=== PATIENT | female | born 1935 ===

== ENCOUNTER 2024-11-03 10:15 | Inpatient (IN) | payer OTHER ==
[~2024-11-03] VITALS: Ht 30.5 cm; Wt 50.8 kg
[~2024-11-03 10:15] MED LIST: PROTONIX20 MG; SYNTHROID75 MCG
[2024-11-03] MEDS ORDERED: PEPCID20 MG PO (11:15)
[2024-11-08] MEDS ORDERED: FUROsemide 20 MG/2 ML VIAL IV SCH (14:30)
[2024-11-08 16:00] VITALS: BP 140/76; O2SAT 100
[2024-11-08] MEDS ORDERED: FAMOtidine 20 MG TABLET PO SCH (21:00)
[2024-11-09 01:14] VITALS: BP 117/58; O2SAT 100
[2024-11-09] MEDS ORDERED: LEVOTHYROXINE SODIUM 75 MCG TABLET PO SCH (06:00)
[2024-11-09 08:00] VITALS: BP 118/59; O2SAT 100
[2024-11-09] MEDS ORDERED: RAZADYNE PO SCH (09:00)
[2024-11-09] MEDS ORDERED: POLYETHYLENE GLYCOL 3350 238 GM POWDER PO NR (14:00)
[2024-11-09 16:54] VITALS: BP 140/62; O2SAT 100
[2024-11-09] MEDS ORDERED: BISACODYL 5 MG TABLET.EC PO SCH (21:00)
[2024-11-10 02:41] VITALS: BP 140/63; O2SAT 100
[2024-11-10] MEDS ORDERED: MINERAL OIL 133 ML ENEMA RECTAL SCH (05:00)
[2024-11-10 08:00] VITALS: BP 144/65; O2SAT 98
[2024-11-10] MEDS ORDERED: BUPIVACAINE HCL/Mpf 0.5% 10ML VIAL ONE (11:01)
[2024-11-10] MEDS ORDERED: LIDOCAINE HCL 1%/EPINEPHRINE 20ML VIAL IJ ONE (11:01)
[2024-11-10] MEDS ORDERED: METRONIDAZOLE/SODIUM CHLORIDE 500 MG/100 ML PIGGYBACK IV ONE (11:02)
[2024-11-10] MEDS ORDERED: CEFTRIAXONE SODIUM 2,000 MG VIAL ONE (11:22)
[2024-11-10 11:29] LABS: HEMATOCRIT 40.3 % (36.0-45.00); HEMOGLOBIN 13.5 g/dL (12.0-15.00); MEAN CELL VOLUME 77.2 fL (80.00-100.00); MEAN CORPUSCULAR HEMOGLOBIN 25.8 pg (27.00-32.0); MEAN CORPUSCULAR HGB CONC 33.4 g/dl (32.0-36.0); PLATELET COUNT 372 K/uL (150-450); RED BLOOD COUNT 5.22 M/uL (4.00-6.00); RED CELL DISTRIBUTION WIDTH 19.8 % (11.5-14.5)
[2024-11-10 13:07] LABS: INR 1.13; PARTIAL THROMBOPLASTIN TIME 27.9 SECONDS (22.0-34.0); PROTHROMBIN TIME 12.2 SECONDS (9.0-11.5)
[2024-11-10] MEDS ORDERED: OxyCODONE HCL 5 MG TABLET (ROXICODONE) PO PRN (14:30)
[2024-11-10] MEDS ORDERED: MORPHINE SULFATE 4 MG/ML CARTRIDGE IV PRN (14:30)
[2024-11-10] MEDS ORDERED: ONDANSETRON HCL 2 MG/ML VIAL IV PRN (14:30)
[2024-11-10] MEDS ORDERED: RINGERS SOLUTION,LACTATED 1,000 ML IV SCH (14:30)
[2024-11-10] MEDS ORDERED: MORPHINE SULFATE 4 MG/ML VIAL IV ONE ×2 (14:35→16:05)
[2024-11-10 15:28] LABS: HEMATOCRIT 36.5 % (36.0-45.00); MEAN CELL VOLUME 78.7 fL (80.00-100.00); MEAN CORPUSCULAR HEMOGLOBIN 25.8 pg (27.00-32.0); MEAN CORPUSCULAR HGB CONC 32.8 g/dl (32.0-36.0); PLATELET COUNT 327 K/uL (150-450); RED BLOOD COUNT 4.64 M/uL (4.00-6.00); RED CELL DISTRIBUTION WIDTH 19.6 % (11.5-14.5)
[2024-11-10] MEDS ORDERED: METOCLOPRAMIDE HCL 5 MG/ML VIAL ONE (16:22)
[2024-11-10 16:30] VITALS: BP 114/64; O2SAT 95
[2024-11-10] MEDS ORDERED: GABAPENTIN 300 MG CAPSULE PO SCH (17:00)
[2024-11-10] MEDS ORDERED: POLYETHYLENE GLYCOL 3350 17 GM BLIST.PACK PO SCH (17:00)
[2024-11-10] MEDS ORDERED: METOCLOPRAMIDE HCL 5 MG/ML VIAL IV SCH (17:00)
[2024-11-10] MEDS ORDERED: SIMETHICONE 125 MG CAPSULE PO SCH (17:00)
[2024-11-10] MEDS ORDERED: HYOSCYAMINE SULFATE 0.125 MG TAB.SUBL SL SCH (17:00)
[2024-11-10] MEDS ORDERED: CELECOXIB 200 MG CAPSULE PO SCH (17:00)
[2024-11-10] MEDS ORDERED: ACETAMINOPHEN 500 MG GEL..CAP PO SCH (20:00)
[2024-11-10] MEDS ORDERED: FAMOTIDINE/PF 20 MG/2 ML VIAL IV PUSH SCH (21:00)
[2024-11-11] VITALS: BP 120/72; O2SAT 96
[2024-11-11 07:47] LABS: HEMATOCRIT 35.2 % (36.0-45.00); HEMOGLOBIN 11.9 g/dL (12.0-15.00); MEAN CELL VOLUME 76.6 fL (80.00-100.00); MEAN CORPUSCULAR HEMOGLOBIN 25.8 pg (27.00-32.0); MEAN CORPUSCULAR HGB CONC 33.7 g/dl (32.0-36.0); PLATELET COUNT 316 K/uL (150-450); RED BLOOD COUNT 4.59 M/uL (4.00-6.00); RED CELL DISTRIBUTION WIDTH 19.6 % (11.5-14.5)
[2024-11-11 08:44] LABS: CALCIUM 9.1 mg/dL (8.5-10.1); CREATININE SERUM 0.57 mg/dL (0.55-1.02); GFR 100.1; MAGNESIUM 1.8 mg/dL (1.8-2.4); PHOSPHOROUS 3.4 mg/dL (2.5-4.9); POTASSIUM 4.6 mEq/L (3.5-5.1)
[2024-11-11] MEDS ORDERED: LACTULOSE 20 G/30 ML BLIST.PACK PO SCH (09:00)
[2024-11-11] MEDS ORDERED: LACTOBACILLUS ACIDOPHILUS 1 CAP CAP PO SCH (09:00)
[2024-11-11 09:54] VITALS: BP 128/80; O2SAT 96
[2024-11-11 16:00] VITALS: BP 112/56; O2SAT 96
[2024-11-11] MEDS ORDERED: ENOXAPARIN SODIUM 40 MG/0.4 ML SYRINGE SUBCUTANEO SCH (17:00)
[2024-11-12] VITALS: BP 135/63; O2SAT 97
[2024-11-12 04:21] VITALS: BP 135/63; O2SAT 97
[2024-11-12 08:00] VITALS: BP 111/72; O2SAT 95
[2024-11-12] MEDS ORDERED: ENOXAPARIN SODIUM 40 MG/0.4 ML SYRINGE SUBCUTANEO SCH (09:00)
== END 2024-11-12 14:33 | disposition home or self-care (01) | DRG 331 ==
LOC: SURG 11-08 08:39 → SURH 11-08 08:39 → SURG 11-10 12:45 → SURH 11-12 14:33
PROVIDERS: ADMIT Colon & Rectal Surgery; ATTEND Colon & Rectal Surgery
PROC: 30233N1 Transfusion of Nonautologous Red Blood Cells into Peripheral Vein, Percutaneous Approach (ICD-10-PCS; 2024-11-09)
PROC: 07BB4ZZ Excision of Mesenteric Lymphatic, Percutaneous Endoscopic Approach (ICD-10-PCS; 2024-11-10)
PROC: 0DTF4ZZ Resection of Right Large Intestine, Percutaneous Endoscopic Approach (ICD-10-PCS; principal; 2024-11-10 16:30)
DX: C18.2 Malignant neoplasm of ascending colon (principal); R59.0 Localized enlarged lymph nodes; D64.9 Anemia, unspecified